=== PATIENT | male | born 1985 | race African-American/Black ===

== ENCOUNTER 2019-11-26 05:10 | Emergency (ER) | payer SELFPAY ==
[2016-01-21 16:23] VITALS: BP 130/61
--- NOTE | 2019-11-26 05:59 | RAD ---
LEFT ANKLE AP, LATERAL, OBLIQUE Clinical Indication: Ankle pain. Comparison: None. Findings: There is no acute fracture or dislocation. Mineralization is normal. Joint spaces are maintained. The ankle mortise is intact. There is no ankle joint effusion. There is no radiographically apparent soft tissue swelling. IMPRESSION: No acute fracture. Electronically signed by: Shorty Morgan MD (11/26/2019 5:57 AM) [id number]
[2019-11-26] MEDS ORDERED: NAPR-683 PO (06:40)
--- NOTE | 2019-11-26 06:40 | PHYS DOC ---
Past Medical History Past Medical History: No Pertinent History Past Surgical History: No Surgical History Smoking Status: Current Every Day Smoker Alcohol Use: None Drug Use: None Adult General Chief Complaint Chief Complaint: ANKLE PROBLEM HPI HPI Patient is a 34 year old male without history of medical problem who presents with complaining of left ankle injury. Patient states he had a fall on stairs when he tried to prevent of the follow-up with his doctor and his left ankle stuck between the stairs yesterday morning. Patient complaining of pain in dista l part of posterior ankle as a constant pain and rated his pain 7/10. Patient states he is not able to his shoes and walking without pain. Patient denies focal neurodeficit and other injuries and loss of consciousness. Review of Systems Review of Systems Constitutional: Denies fever or chills [] Eyes: Denies change in visual acuity, redness, or eye pain [] HENT: Denies nasal congestion or sore throat [] Respiratory: Denies cough or shortness of breath [] Cardiovascular: No additional information not addressed in HPI [] GI: Denies abdominal pain, nausea, vomiting, bloody stools or diarrhea [] : Denies dysuria or hematuria [] Musculoskeletal: Denies back pain, reports joint pain [] Integument: Denies rash or skin lesions [] Neurologic: Denies headache, focal weakness or sensory changes [] Endocrine: Denies polyuria or polydipsia [] All other systems were reviewed and found to be within normal limits, except as documented in this note. Allergies Allergies Allergies Coded Allergies Type Severity Reaction Last Updated Verified No Known Drug Allergies 01/21/16 No Physical Exam Physical Exam Constitutional: Well developed, well nourished, mild distress, non-toxic appearance. [] HENT: Normocephalic, atraumatic. Eyes: PERRLA, EOMI, conjunctiva normal, no discharge. [] Neck: Normal range of motion, no tenderness, supple, no stridor. [] Cardiovascular:Heart rate regular rhythm, no murmur [] Lungs & Thorax: Bilateral breath sounds clear to auscultation [] Extremities: Left lower extremity without deformity or edema, ecchymosis of the posterior distal of left foot with marked tenderness without deformity, no Achilles tendon tenderness or edema. Neurologic: Alert and oriented X 3, no focal deficits noted. [] Psychologic: Affect normal, judgement normal, mood normal. [] EKG EKG [] Radiology/Procedures Radiology/Procedures [facility] [address] [place] [address] IMAGING REPORT Signed PATIENT: CHATO MATHUR ACCOUNT: [id number] : 1985 LOCATION: ER AGE: 34 SEX: M EXAM STATUS: REG ER ORD. PHYSICIAN: DANNIELLE STONE DO REASON: ankle pain PROCEDURE: ANKLE LEFT 3V LEFT ANKLE AP, LATERAL, OBLIQUE Clinical Indication: Ankle pain. Comparison: None. Findings: There is no acute fracture or dislocation. Mineralization is normal. Joint spaces are maintained. The ankle mortise is intact. There is no ankle joint effusion. There is no radiographically apparent soft tissue swelling. IMPRESSION: No acute fracture. Electronically signed by: Shorty Morgan MD (11/26/2019 5:57 AM) [id number] DICTATED and SIGNED BY: SHORTY MORGAN MD DATE: 11/26/19 0557 Course & Med Decision Making Course & Med Decision Making I've spoken with the patient and/or caregivers. I've explained the patient's condition, diagnosis and treatment plan based on information available to me at this time. I've answered the patient's and/or caregivers questions and addressed any concerns. The patient and/or caregivers have a good understanding the patient's diagnosis, condition and treatment plan as can be expected at this po int. Vital signs have been stabilized. The patient's condition is stable for discharge from the emergency department. The patient will pursue further outpatient evaluation with her primary care provider or other designated consulting physician as outlined in the discharge instructions. Patient and/or caregivers are agreeable to this plan of care and follow-up instructions have been explained in detail. The patient and/or caregivers have received these instructions in written format and expressed understanding of these discharge instructions. The patient and her caregivers are aware that if any significant change in condition or worsening of symptoms should prompt him to immediately return to this of the closest emergency department. If an emergent department is not readily available I would encourage him to call 911. Meryl Disclaimer Meryl Disclaimer This electronic medical record was generated, in whole or in part, using a voice recognition dictation system. Departure Departure Impression: Primary Impression: Contusion of ankle, left Disposition: 01 HOME, SELF-CARE (at [phone]) Condition: STABLE Referrals: NO PCP (PCP) Patient Instructions: Foot Contusion Additional Instructions: Apply ice on the affected area Follow-up with your primary care physician in 3-5 days Return to ER if not getting better Scripts Naproxen (NAPROSYN) 500 Mg Tablet 1 TAB PO BID for pain, #14 TAB Prov: CHRISTIAN JULIEN MD 11/26/19 Problem Qualifiers Primary Impression: Contusion of ankle, left Encounter type: initial encounter Qualified Codes: S90.02XA - Contusion of left ankle, initial encounter CHRISTIAN JULIEN MD Nov 26, 2019 06:40
== END 2019-11-26 06:45 | disposition home or self-care (01) ==
LOC: ER 05:10
DX: S90.02XA Contusion of left ankle, initial encounter (principal); F17.200 Nicotine dependence, unspecified, uncomplicated; W10.8XXA Fall (on) (from) other stairs and steps, initial encounter; Y93.89 Activity, other specified; Y92.89 Other specified places as the place of occurrence of the external cause; Y99.8 Other external cause status
CPT/HCPCS: 73610; 99283

== ENCOUNTER 2020-02-16 13:22 | Emergency (ER) | payer SELFPAY ==
[~2020-02-16] VITALS: Ht 172.7 cm; Wt 63.3 kg
[~2020-02-16 13:22] MED LIST: NAPR-683 PO
[2020-02-16 13:32] VITALS: BP 121/69
--- NOTE | 2020-02-16 13:56 | PHYS DOC ---
Past Medical History Past Medical History: No Pertinent History Past Surgical History: No Surgical History Smoking Status: Current Every Day Smoker Alcohol Use: Occasionally Drug Use: None General Adult EDM: Chief Complaint: ABDOMINAL PAIN HPI: HPI: Patient is a 34 year old male who presented to ER today to for evaluation of nausea vomiting diarrhea since Friday. Patient said he went out to eat burgers at a restaurant on Friday, then the next day he started having nausea and vomiting with some diarrhea. Patient went to work yesterday, he vomited work, his boss sent him home. Patient said he feels much better today denies any abdominal pain, no nausea vomiting or diarrhea however his boss would not let him come back to work without a doctor's clearance. Patient denies any fever, no cough, no sore throat, no trouble breathing. Patient said he has not been exposed to anybody who tested positive COVID-19. Patient came here today wanted medical clearance for him to go back to work. Review of Systems: Review of Systems: Constitutional: Denies fever or chills. [] Eyes: Denies change in visual acuity. [] HENT: Denies nasal congestion or sore throat. [] Respiratory: Denies cough or shortness of breath. [] Cardiovascular: Denies chest pain or edema. [] GI: Denies abdominal pain, POSITIVE FOR nausea, vomiting, NO diarrhea. : Denies dysuria. [] Musculoskeletal: Denies back pain or joint pain. [] Integument: Denies rash. [] Neurologic: Denies headache, focal weakness or sensory changes. [] Endocrine: Denies polyuria or polydipsia. [] Lymphatic: Denies swollen glands. [] Psychiatric: Denies depression or anxiety. [] Heart Score: Risk Factors: Risk Factors: DM, Current or recent (<one month) smoker, HTN, HLP, family history of CAD, obesity. Risk Scores: Score 0 - 3: 2.5% MACE over next 6 weeks - Discharge Home Score 4 - 6: 20.3% MACE over next 6 weeks - Admit for Clinical Observation Score 7 - 10: 72.7% MACE over next 6 weeks - Early Invasive Strategies Allergies: Allergies: Allergies Coded Allergies Type Severity Reaction Last Updated Verified No Known Drug Allergies 01/21/16 No Physical Exam: PE: Constitutional: Well developed, well nourished, no acute distress, non-toxic appearance. [] HENT: Normocephalic, atraumatic, bilateral external ears normal, oropharynx moist, no oral exudates, nose normal. [] Eyes: PERRLA, EOMI, conjunctiva normal, no discharge. [] Neck: Normal range of motion, no tenderness, supple, no stridor. [] Cardiovascular:Heart rate regular rhythm, no murmur [] Lungs & Thorax: Bilateral breath sounds clear to auscultation [] Abdomen: Bowel sounds normal, soft, tenderness, no masses, no pulsatile masses. NO GUARDING, NO REBOUND, ABDOMEN IS NOT RIGID. Skin: Warm, dry, no erythema, no rash. [] Back: No tenderness, no CVA tenderness. [] Extremities: No tenderness, no cyanosis, no clubbing, ROM intact, no edema. [] Neurologic: Alert and oriented X 3, normal motor function, normal sensory function, no focal deficits noted. [] Psychologic: Affect normal, judgement normal, mood normal. [] Current Patient Data: Vital Signs: Vital Signs Date Time Temp Pulse Resp B/P (MAP) Pulse Ox O2 Delivery O2 Flow Rate FiO2 02/16/20 13:32 98.4 76 12 121/69 (86) 100 Room Air 98.4 EKG: EKG: [] Radiology/Procedures: Radiology/Procedures: [] Course & Med Decision Making: Course & Med Decision Making Pertinent Labs and Imaging studies reviewed. (See chart for details) patient is a 34-year-old male who is evaluated in the ER today due to nausea vomiting diarrhea. Patient denies any symptom at this time. Patient'S boss sent him home from work yesterday, will not allow him to back to work WITHOUT A DOCTOR NOTE. Patient denies any fever, no cough, no sore throat, no headache. Patient did not get exposed to any ANYONE WITH COVID-19 EXPOSURE. Patient had no fever, no symptom at this time, no further diagnostic work-up needed at this time. Dragon Disclaimer: Dragon Disclaimer: This electronic medical record was generated, in whole or in part, using a voice recognition dictation system. Departure Departure Impression: Primary Impression: Gastroenteritis Disposition: HOME, SELF-CARE Condition: STABLE Referrals: NO PCP (PCP) follow up with your doctor as needed Patient Instructions: Viral Gastroenteritis Additional Instructions: You are okay to go back to work if you have no fever, no cough or shortness of air. EDU ALMONTE DO February 16, 2020 13:56
== END 2020-02-16 14:54 | disposition home or self-care (01) ==
LOC: ER 13:22
DX: K52.9 Noninfective gastroenteritis and colitis, unspecified (principal); R11.2 Nausea with vomiting, unspecified; F17.200 Nicotine dependence, unspecified, uncomplicated
CPT/HCPCS: 99281